=== PATIENT | female | born 1955 | race Caucasian/White ===

== ENCOUNTER → 2016-09-18 | Outpatient (CLI) | payer OTHER ==
[~2016-09-18] MED LIST: ASPIRIN81 M1 PO; LISINOPRIL PO; TOPROL XL PO; VITAMIN B PO; [UNRECOGNIZED DRUG - OTHER]
--- NOTE | ~2016-09-18 | MY29 ---
[facility] A Service of [facility] RADIOLOGY TEXT RESULTS PATIENT: SONYA MAJOR LOCATION: [facility] : 55 UNIT #: [id number] AGE: [address]: Melecio Barragan MD SEX: F ORDER DR: [id number] [facility] [address] [place], [place] [address] [id number] O MR#: [id number] Acc #: [id number] NAME: SONYA MAJOR : 1955 SEX: F STUDY DATE/TIME: 09/18/2016 15:57 UNIT: [facility] ROOM: STUDY DESCRIPTION: MY LORY SCREENING W/ CAD BILAT Attending Physician: Melecio Barragan M.D. Referring Physician: Melecio Barragan M.D. Ordering Physician: Melecio Barragan M.D. Primary Care Physician: Melecio Barragan M.D. MEDICAL IMAGING REPORT This report is preliminary unless electronic signature is present EXAM Digital screening mammogram 09/18/2016 HISTORY 61-year-old woman no risk elevation. Annual screen. COMPARISON Mammograms 04/16/2013 06/17/2015 FINDINGS Digital imaging of each breast was completed utilizing a two-view examination of each breast in craniocaudal and mediolateral-oblique projections. Review and interpretation of digital mammograms include a second review in conjunction with FDA-approved CAD device. There is a normal parenchymal presentation bilaterally consistent with the patient's age. There are no breast masses imaged and no parenchymal asymmetry is visualized. There are no suspicious microcalcifications and I see no focal architectural disturbance. IMPRESSION Negative screening digital mammogram. One-year followup recommended. Patients over the age of 40 are entered into a reminder system with target due date for the next mammogram. A result letter will also be sent to the patient. BIRADS: 1 Negative ADDENDUM Breast parenchyma is fatty replaced. Dictated by... Brain Cameron M.D. [facility] A Service [facility] RADIOLOGY TEXT RESULTS PATIENT: SONYA MAJOR LOCATION: [facility] : 55 UNIT #: [id number] AGE: [address]: Melecio Barragan MD SEX: F ORDER DR: THIS IS AN ELECTRONICALLY VERIFIED REPORT Brain Cameron M.D. at 09/19/2016 2:24 PM TASH/hannah TD: 09/19/2016 12:56 JOB #: [id number] MEDICAL IMAGING REPORT Page 1 of 1 COPY
== END | disposition home or self-care (01) ==
LOC: CWCC 15:36
DX: Z12.31 Encounter for screening mammogram for malignant neoplasm of breast (principal); R92.8 Other abnormal and inconclusive findings on diagnostic imaging of breast
CPT/HCPCS: G0202